=== PATIENT | female | born 1985 | race Caucasian/White ===

== ENCOUNTER 2022-10-26 11:23 | Emergency (ER) | payer SELFPAY ==
--- OUTSIDE RECORDS SUMMARY | 2022-10-26 11:26 | XMS REPORT | Continuity of Care Document ---
:1985 Author Organization [facility] t Address [address] [facility] [address] [place] [id number] Care Team Providers Name Role Phone Pcp, Patient Does Not Have A Primary Care Physician [id number] Kapil Ruby Attending Clinician Anival Louie Attending Clinician ANVIAL COTTRELL Attending Clinician Unavailable MARY GAINES Attending Clinician Unavailable MAXIME LLOYD Attending Clinician Unavailable MARY GAINES Admitting Clinician Unavailable Payers Payer Name Policy Type Policy Number Effective Date Expiration Date [facility] [id number] 2015 CHOICE [place] STAR 00:00:00 Problems Condition Condition Condition Status Onset Resolution Last Treating Co mments Source Name Details Category Date Date Treatment Clinician Date Well woman Well woman Disease Active Overview : Univers exam exam 3-17 Formattin ity of 00:00: g of this [place] 00 note Medical might be Branch different from the original. Last exam and pap 04/2016. Pap negative 11/2015. Report here Encounter Encounter Disease Active Overview: Univers for for 3-17 Formattin ity of initial initial 00:00: g of this [place] prescripti prescripti 00 note Me dical on of on of might be Branch injectable injectable different contracept contracept from the tracey tracey original. Depo started 06/2016 Metrorrhag Metrorrhag Disease Active Overview : Univers ia ia 06-24 Formattin ity of 00:00: g of this [place] 00 note Medical might be Branch different from the original. At 5 wk postpartu m. Stopped w/ Ibuprofen Allergies, Adverse Reactions, Alerts Allergy Allergy Status Severity Reaction(s) Onset Inactive Treating Comm ents Source Name Type Date Date Clinician No Known DA Active U [facility] Allergie 05-19 Clear s 00:00: [place] 00 [facility] NO KNOWN Drug Active Univers ALLERGIE Class ity of S [facility] [place] [facility] Social History Social Habit Start Date Stop Date Quantity Comments Source History of tobacco Cigarette Smoker University of use [facility] [place] [facility] Exposure to 2022-05-26 2022-06-05 Not sure [facility] SARS-CoV-2 (event) 00:00:00 13:27:00 [facility] [place] [facility] Alcohol intake 2022-06-05 2022-06-05 Current University 00:00:00 00:00:00 non-drinker of [facility] alcohol Branch (finding) Cigarettes smoked 2016-06-24 2016-06-24 Univers ity of current (pack per 00:00:00 00:00:00 ) - Reported Branch Tobacco use and 2016-06-24 2016-06-24 Smokeless Universit y of exposure 00:00:00 00:00:00 tobacco non-user [facility] Sex Assigned At [birth year] Universit y of 00:00:00 00:00:00 [facility] [place] [facility] Smoking Status Start Date Stop Date Source Smokes tobacco daily 2016-06-24 00:00:00 Univers ity of [facility] [place] [facility] Medications Ordered Filled Start Stop Current Ordering Indication Dosage Frequency Signature Comments Components Source Medication Medication Date Date Medication? Clinician (SIG) Name Name medroxyPROG Yes [id number] 150mg Univers ESTERone 3-22 ity of (DEPO-PROVE 19:00: [place] RA) 00 Medical injection Branch 150 mg VITAFOL Yes [id number] TK 1 C PO Univers ULTRA 29 mg 3-09 QD ity of iron- 1 00:00: [place] mg-200 mg 00 Medical Cap Branch Vital Signs Vital Name Observation Time Observation Value Comments Source Body weight 2022-06-05 19:30:00 34.337 kg [facility] BMI 2022-06-05 19:30:00 13.41 kg/m2 [facility] Systolic blood 2022-06-05 19:29:00 164 mm[Hg] Univer sity of pressure [facility] [place] [facility] Diastolic blood 2022-06-05 19:29:00 93 mm[Hg] Unive rsity of pressure [facility] [place] [facility] Heart rate 2022-06-05 19:29:00 103 /min [facility] Body temperature 2022-06-05 19:29:00 36.56 [facility]ela [facility] Respiratory rate 2022-06-05 19:29:00 18 /min [facility] Oxygen saturation in 2022-06-05 19:29:00 96 /min [facility] Arterial blood by [facility] Pulse oximetry [place] Procedures Procedure Date / Time Performed Performing Clinician [facility] e CONSENT/REFUSAL FOR 2022-06-05 19:26:34 Doctor Unassigned, No Un [facility] DIAGNOSIS AND Name [facility] TREATMENT Encounters Start End Encounter Admission Attending Care Care Encounter Source Date/Time Date/Time Type Type Clinicians Facility Department ID 2022-06-13 2022-06-13 Outpatient [facility] [id number] [address] [place] [address] 13:15:00 13:15:00 Health 2022-06-05 2022-06-05 Emergency Kapil Wade B TRAUMA [id number] [facility] 13:31:00 14:19:00 Anival Cottrell [place] [id number] [id number] [id number] [facility] 014 Branch 2022-06-05 2022-06-05 Emergency X AKHIL ORANA PAULA ERT [id number] [facility] 13:31:00 14:19:00 ANIVAL verdey of [facility] [place] [facility] 2021-09-01 2021-09-02 Inpatient E [facility] [id number] 03:35:00 20:36:00 [facility] 2021-05-21 2021-05-21 Emergency E [facility] [id number] 13:48:00 14:33:00 MAXIME trejo [facility] 2017-11-13 2017-11-16 Outpatient [facility] [id number] [place] 00:00:00 00:00:00 [facility] 2017-09-16 2017-09-17 Outpatient [facility] [id number] [place] 00:00:00 00:00:00 [facility] 2017-01-23 2017-01-24 Outpatient [facility] [id number] 77 [place] 00:00:00 00:00:00 [facility] Results Test Description Test Time Test Comments Results Result Comments Source RPR Ser-Titr 2022-06-15 12:56:39 Test Item Value Reference Range Interpretation Comme nts T pallidum Ab Ser Ql Aggl (test code = 25414-6) NEGATIVE Negati ve, Equivocal Reagin+T pallidum IgG+IgM SerPl-Imp (test code = NEGATIVE Negat tracey 13215-1) HHSHIV 1+2 Ab+HIV1 p24 Ag SerPl Ql [id number] 11:43:06 Test Item Value Reference Range Interpretation Comments HIV 1+2 Ab+HIV1 p24 Ag SerPl Ql IA NEGATIVE Negative (test code = 30204-2) [facility]- XR CHEST 2 [id number] 16:34:00 FAX: Benedict Smith DO [phone] [place]: St: REG Name: BIENVENIDO ELIZONDO GORDON [facility] : 1985 Age/S: 33/F [address] [place] [address] Unit #: [id number] Loc: VitaliyERS2 [place] [address] Phys: Benedict Ferro DO Acct: [id number] Dis Date: Status: REG ER PHONE #: [phone] Exam Date: 07/28/2018 1503 FAX #: [phone] Reason: cough EXAMS: CPT CODE: [id number] XR CHEST 2 V 23920 Clinical Indication: coughComparison: December 29, 2007 FINDINGS: The frontal and lateral chest radiographs show normal lung volumes. No interstitial or airspace opacities are seen. No pleural effusions are present. No pneumothorax is seen. The heart is normal in size. The trachea is midline. There are no clinically significant osseous abnormalities noted. IMPRESSION: No chest radiographic evidence of acute cardiopulmonary disease. SL: [id number] at 1634 Reported and signed by: Rosalino Castano M.D. CC: Benedict Ferro DO Technologist: ONEL Maguire) Trnscrd Date/Time/By: 07/28/2018 (5060) : By: DemarLNV Orig Print D/T: S: 07/28/2018 (4472) PAGE 1 Signed ReportBASIC METABOLIC PANEL 2018-07-28 15:15:00 Test Item Value Reference Range Interpretation Comments SODIUM (test code = NA) 137 mEq/L 134-147 N POTASSIUM (test code = 4.3 mEq/L 3.4-5.0 N K) CHLORIDE (test code = 106 mEq/L 100-108 N CL) CARBON DIOXIDE (test 26 mEq/L 21-33 N code = CO2) ANION GAP (test code = 9 0-20 N GAP) GLUCOSE (test code = 107 mg/dL 70-110 N GLU) BLOOD UREA NITROGEN 15 mg/dL 7-18 N (test code = BUN) GLOMERULAR FILTRATION 97.0 105-110 L Units of measure = RATE (test code = GFR) ml/mi n/1.73 m2 CREATININE (test code = 0.7 mg/dL 0.6-1.3 N CREAT) CALCIUM (test code = 8.5 mg/dL 8.0-10.5 N CA) HEPATIC FUNCTION [id number] 15:15:00 Test Item Value Reference Range Interpretation Comments TOTAL PROTEIN (test code = PROT) 7.6 g/dL 6.4-8.2 N ALBUMIN (test code = ALB) 4.10 g/dL 3.4-5.0 N BILIRUBIN TOTAL (test code = BILT) 0.30 mg/dL 0.0-1.0 N BILIRUBIN DIRECT (test code = 0.10 MG/DL 0.0-0.30 N BILD) BILIRUBIN INDIRECT (test code = 0.20 MG/DL BILIND) SGOT/AST (test code = AST) 16 IUnit/L 15-37 N SGPT/ALT (test code = ALT) 21 IUnit/L 15-65 N ALKALINE PHOSPHATASE TOTAL (test 48 IUnit/L 20-125 N code = ALKP) BASIC METABOLIC [id number] 15:11:00 Test Item Value Reference Range Interpretation Comments SODIUM (test code = NA) 137 mEq/L 134-147 N POTASSIUM (test code = 4.3 mEq/L 3.4-5.0 N K) CHLORIDE (test code = 106 mEq/L 100-108 N CL) CARBON DIOXIDE (test 26 mEq/L 21-33 N code = CO2) ANION GAP (test code = 9 0-20 N GAP) GLUCOSE (test code = 107 mg/dL 70-110 N GLU) BLOOD UREA NITROGEN 15 mg/dL 7-18 N (test code = BUN) GLOMERULAR FILTRATION 97.0 105-110 L Units of measure = RATE (test code = GFR) ml/mi n/1.73 m2 CREATININE (test code = 0.7 mg/dL 0.6-1.3 N CREAT) CALCIUM (test code = 8.5 mg/dL 8.0-10.5 N CA) HEPATIC FUNCTION [id number] 15:11:00 Test Item Value Reference Range Interpretation Comments TOTAL PROTEIN (test code = PROT) g/dL 6.4-8.2 ALBUMIN (test code = ALB) 4.10 g/dL 3.4-5.0 N BILIRUBIN TOTAL (test code = BILT) mg/dL 0.0-1.0 BILIRUBIN DIRECT (test code = 0.10 MG/DL 0.0-0.30 N BILD) SGOT/AST (test code = AST) 16 IUnit/L 15-37 N SGPT/ALT (test code = ALT) 21 IUnit/L 15-65 N ALKALINE PHOSPHATASE TOTAL (test IUnit/L 20-125 code = ALKP) Notes Date/Time Note Provider Source 2018-07-28 14:17:00-00:00 [facility] EMERGENCY PROVIDER REPORT REPORT#:[id number] REPORT STATUS: Signed DATE:07/28/18 TIME: 1416 PATIENT: BIENVENIDO ELIZONDO RAI UNIT #: [id number] ROOM/BED: AGE: 33 SEX: F PCP PHYS: No Primary or Family Ph ysician SERVICE AUTHOR: Benedict Ferro DO * ALL edits or amendments must be made on the Noteleaf/computer document * HPI-General Illness Free Text HPI Notes Free Text HPI Notes 33 yo F with h/o adjustment d/o presents with N/V. Pt reports she feels she is going through withdrawal, since has has experien jelly it before. She states she last used meth heroine 4 days ago. Denie s IV use. She admits to assoc diarrhea body aches. Denies fever or other recent infect ious sxs. Pt denies EtOH use. General Confirmed Patient Yes Initial Greet Date/Time 07/28/18 1408 Presentation Chief Complaint Vomiting Hx Obtained From Patient Onset Occurred Days ago Portions of this section were scribed by Shivani Cueto on 07/28/18 at 1653 Portions of this section were scribed by Nathalia Nuenz on 07/28/18 at 1453 Review of Systems ROS Statements All systems rev neg except as marked. Review of Systems Constitutional Denies: Chills, Fever. GI Reports: Diarrhea, Nausea, Vomiting. Musculoskeletal Reports: Myalgia. Psychiatric Denies: Hallucinations, auditory, Hallucinations , visual, Homicidal ideation, Suicidal ideation. Portions of this section were scribed by Nathalia Nunez on 07/28/18 at 1417 Past Medical History - Adult Stated Complaint N/V DETOXING FROM HEROIN Allergies Coded Allergies: No Known Allergies (05/19/16) Home Medications Discontinued Scripts DOCUSATE SODIUM (COLACE) 100 MG PO BID PRN PRN C onstipation DOCUSATE SODIUM (COLACE) 100 MG PO BID PRN PRN Constipation #30 CAP Prov: 05/19/16 DC: 07/28/18 1425 Changed since prior admit HYDROcodone/APAP (NORCO 5/325) 1-2 TABS PO Q6H P RN PRN PAIN HYDROcodone/APAP (NORCO 5/325) 1-2 TABS PO Q6H PRN PRN PAIN #30 TAB Prov: 05/20/16 DC: 07/28/18 1425 DC prior to admit IBUPROFEN (MOTRIN) 600 MG PO Q6H PRN PRN PAIN IBUPROFEN (MOTRIN) 600 MG PO Q6H PRN PRN PAIN # 30 TAB Prov: 05/20/16 DC: 07/28/18 1425 DC prior to admit FERROUS SULFATE (FEOSOL) 325 MG PO DAILY FERROUS SULFATE (FEOSOL) 325 MG PO DAILY #30 TA B Prov: 05/20/16 DC: 07/28/18 1425 DC prior to admit Reported Medications ESCITALOPRAM (LEXAPRO) 10 MG PO DAILY hydrOXYzine HCL (ATARAX) 50 MG PO TID Past Medical History: Reports: Seizure disorder. Additional Medical History ovarian cyst, adjustment d/o, ectopic Past Surgical History: Reports: . Alcohol Use Denies EtOH use Drug Use Meth/amphetamines, Opiates (heroine) Smoking status for patients 13 years old or olde r: Current every day smoker Portions of this section were scribed by Nathalia Nunez on 07/28/18 at 1453 Physical Exam Vital Signs Vital Signs First Documented: Result Date Time Pulse Ox 99 07/28 1413 B/P 139/88 07/28 1413 B/P Mean 105 07/28 1413 O2 Delivery Room air 07/28 1413 Temp 36.9 07/28 1413 Pulse 86 07/28 1413 Resp 18 07/28 1413 Last Documented: Result Date Time Pulse Ox 99 07/28 1820 B/P 110/62 07/28 1820 B/P Mean 78 07/28 1820 O2 Delivery Room air 07/28 182 Temp 36.7 07/28 182 Pulse 74 07/28 1820 Resp 15 07/28 182 Review of Vital Signs Reviewed Physical Exam General/Const General/Const Awake, Alert, Cooperative Text/Dict Notes appears uncomfortable, disheveled MS Head Head Atraumatic, Normocephalic Eyes Eyes Conjunctiva NL Text/Dict Notes pupils midline Ears/Nose/Throat Ears/Nose/Throat Airway patent Text/Dict Notes dry mucous membranes MS Neck Neck Supple Resp/Chest Respiratory/Chest Breath sounds NL, No respira tory distress, No rales, No rhonchi, No wheezing Cardiovascular Cardiovascular Heart rate NL, Regular rhythm, H eart sounds NL Abdomen/GI Abdomen/GI Soft, No guarding, No rebound, No di stention Text/Dict Notes mild generalized tenderness MS Lower Extrem Lower Ext/Pelvis/MS No swelling, Non-tender Skin Skin Warm, Dry, Intact Neurologic Neurologic Oriented X3, Speech NL Text/Dict Notes slightly tremulous Psychiatric Psychiatric Affect NL, Mood NL, Not suicidal, N ot homicidal Portions of this section were scribed by Shivani Cueto on 07/28/18 at 1651 Portions of this section were scribed by Nathalia Nunez on 07/28/18 at 1421 Interpretation Diagnostics Lab Results Interpretation Results Laboratory Tests 07/28/18 1420: [Embedded Image Not Available] Laboratory Tests: 07/28 1420 Chemistry Sodium (134 - 147 mEq/L) 137 Potassium (3.4 - 5.0 mEq/L) 4.3 Chloride (100 - 108 mEq/L) 106 Carbon Dioxide (21 - 33 mEq/L) 26 Anion Gap (0 - 20) 9 BUN (7 - 18 mg/dL) 15 Creatinine (0.6 - 1.3 mg/dL) 0.7 Glomerular Filtr Rate (105 - 110) 97.0 L Glucose (70 - 110 mg/dL) 107 Calcium (8.0 - 10.5 mg/dL) 8.5 Total Bilirubin (0.0 - 1.0 mg/dL) 0.30 Direct Bilirubin (0.0 - 0.30 MG/DL) 0.10 Indirect Bilirubin (MG/DL) 0.20 AST (15 - 37 IUnit/L) 16 ALT (15 - 65 IUnit/L) 21 Total Alk Phosphatase (20 - 125 IUnit/L) 48 Total Protein (6.4 - 8.2 g/dL) 7.6 Albumin (3.4 - 5.0 g/dL) 4.10 Recent Impressions: RADIOLOGY - XR CHEST 2 V 07/28 1503 Report Impression - Status: SIGNED Entered: 07/28/2018 1637 IMPRESSION: No chest radiographic evidence of acute cardiopu lmonary disease. SL: [id number] Impression By: Caleb Castano M.D. Point of Care Testing Pulse Oximetry Pulse Ox % 99 On: Room air Interpretation Interpreted by me, Pulse oximetr y normal Time 1413 ECG #1 Interpretation Text/Dict Note NSR, incomplete RBBB, no STEMI, [place] inter manohar 132 ms, QRS duration 94 ms, QT/QTc 402/454 ms Date 07/28/18 Time 1449 Interpreted by ED physician Rate 77 Radiography X-Ray Chest Text/Dict Note RADIOLOGY - XR CHEST 2 V 07/28 1503 Report Impression - Status: SIGNED Entered: 07/28/2018 1637 IMPRESSION: No chest radiographic evidence of acute cardiopu lmonary disease. SL: [id number] Impression By: Caleb Castano M.D. Interpretation/Wet Read by Interpret - Radiolog ist Reviewed by ED physician Portions of this section were scribed by Shivani Cueto on 07/28/18 at 1653 Portions of this section were scribed by Nathalia Nunez on 07/28/18 at 1453 Re-Evaluation MDM Free Text MDM Notes Free Text MDM Notes 33F with sxs of withdrawal, endorses recent use of methamphetamine as well as opiates. BMP normal. Treated symptomatically, stable for discharge. Re-Evaluation/Progress #1 Text/Dict Note Discussed lab results/imaging findigns, dx, and rx w/ pt. Provided reasons to return to the ED. Pt will f/u w/ PCP as needed. Pt agrees w/ plan to DC home. Time of Re-Eval 1646 ED Course Medication(s) Ordered Medication(s) Ordered: Antihistamine Drugs Sig/Nan Start time Last Medication Dose Route Stop Time Status Admin Promethazine HCl 25 MG X1ED STA 07/28 1423 DC 0 07/28 IM 07/28 1424 1440 Central Nervous System Agents Sig/Nan Start time Last Medication Dose Route Stop Time Status Admin Lorazepam 1 MG X1ED STA 07/28 1423 DC 07/28 IV 07/28 1424 1441 Electrolytic, Caloric, And Efrem Sig/Nan Start time Last Medication Dose Route Stop Time Status Admin Sodium Chloride 0 ASDIR PRN 07/28 1430 DCD IV 07/29 1318 Sodium Chloride 0 ASDIR PRN 07/28 1430 DCD IV 08/27 1429 Sodium Chloride 1,000 ML X1ED STA 07/28 1419 DC 07/28 IV 07/28 1518 1440 Portions of this section were scribed by Shivani Cueto on 07/28/18 at 1651 Portions of this section were scribed by Nathalia Nunez on 07/28/18 at 1453 Patient Discharge Departure Vital Signs/Condition Vital Signs First Documented: Result Date Time Pulse Ox 99 07/28 1413 B/P 139/88 07/28 1413 B/P Mean 105 07/28 1413 O2 Delivery Room air 07/28 1413 Temp 36.9 07/28 1413 Pulse 86 07/28 1413 Resp 18 07/28 1413 Last Documented: Result Date Time Pulse Ox 99 07/28 1820 B/P 110/62 07/28 1820 B/P Mean 78 07/28 1820 O2 Delivery Room air 07/28 182 Temp 36.7 07/28 182 Pulse 74 07/28 1820 Resp 15 07/28 1820 All vital signs available at the time of this en try have been reviewed. Condition Improved Clinical Impression Clinical Impression Primary Impression: Opiate withdrawal Disposition Decision Discharge )( Discharged to Home Yes )( Time 1650 )( Date 07/28/18 Discharge/Care Plan Counseled Regarding Diagnosi s, Lab results, Imaging studies, Need for follow-up, When to return to ED Supervising Physician Note Scribe Statement La Nunez, 07/28/18 141, scribing for and in the presence of Dr. Ferro. Signed By: La Nunez, 07/28/18 1419 Divya. Rom, 07/28/18 1419, scribing for and in the presence of Dr. Ferro. Signed By: Shivani Cueto, 07/28/18 1606 Provider Scribed Statement I personally performed the s ervices described in this documentation and reviewed the documentation that was dictated to the scrib e(s) in my presence, and it accurately records my words and actions. Veronika Ferro, 07/28/18 Portions of this section were scribed by Shivani Cueto on 07/28/18 at 1651 Portions of this section were scribed by Nathalia Nunez on 07/28/18 at 1419 Electronically Signed by Benedict Ferro DO on at 1843 RPT #:[id number] END OF REPORT
--- NOTE | 2022-10-26 12:34 | ER ---
Nurse's Notes [facility] Name: Danilo Kaplan Age: 37 yrs Sex: Female : 1985 Arrival Date: 10/26/2022 Time: 11:23 Bed IW1 Private MD: Diagnosis: Heroin addiction with mild withdrawal Presentation: 10/26 11:45 Chief complaint: Patient states: Pt at [facility] rehab, is there for heroin use, ph last used 2 days ago, admits to using heroin, fentanyl, and meth, denies ETOH, pt denies pain, reports nausea, denies vomiting, accompanied by [facility] staff member who states that she was given Suboxone this morning and "then she couldn't function". Coronavirus screen: Vaccine status: Patient reports being unvaccinated. Ebola Screen: No symptoms or risks identified at this time. Initial Sepsis Screen: Does the patient meet any 2 criteria? No. Patient's initial sepsis screen is negative. Does the patient have a suspected source of infection? No. Patient's initial sepsis screen is negative. Risk Assessment: Do you want to hurt yourself or someone else? Patient reports no desire to harm self or others. Onset of symptoms was October 26, 2022. 11:45 Method Of Arrival: Ambulatory ph 11:45 Acuity: ELIAS 3 ph Historical: - Allergies: 11:48 No Known Allergies; ph - PSHx: 11:48 ectopic ; ph - Immunization history:: Adult Immunizations unknown. - Social history:: Smoking status: Patient reports the use of cigarette tobacco products, smokes one-half pack cigarettes per day, Reported history of juuling and/or vaping. Patient uses street drugs, heroin, Methamphetamine (Meth) Fentanyl. - Family history:: not pertinent. - Hospitalizations: : No recent hospitalization is reported. Vital Signs: 11:45 BP 133 / 90; Pulse 74; Resp 18; Temp 97.1(TE); Pulse Ox 100% on R/A; Weight 118.39 kg; ph ED Course: 11:25 Patient arrived in ED. mr 11:25 Luis Miguel Loza MD is Attending Physician. rn 11:48 Triage completed. ph 11:49 Arm band placed on Patient placed in waiting room, Patient notified of wait time. ph 12:32 [facility] Administered Medications: No medications were administered Outcome: 12:33 Patient left the ED. ph 13:17 Discharge ordered by . rn 13:36 Patient left the ED. ll1 Signatures: Claudine Azevedo Roman, MD MD rn Hall, Patricia, RN RN ph Lewis, Lynsay, RN RN [facility]
--- NOTE | 2022-10-26 12:34 | EDPHYS ---
Physician Documentation [facility] Name: Danilo Kaplan Age: 37 yrs Sex: Female : 1985 Arrival Date: 10/26/2022 Time: 11:23 Bed IW1 Private MD: ED Physician Luis Miguel Loza HPI: 10/26 11:48 This 37 yrs old Female presents to ER via Unassigned with complaints of Withdrawals. rn 11:48 Pt reports coming off of heroin and fentanyl addiction, is currently at [facility], rn reported to them that she was having whole body pain, nausea, and directed to come here. Given 1 dose of suboxone there. NO chest pain/sob/abd pain. . Onset: The symptoms/episode began/occurred yesterday. Severity of symptoms: At their worst the symptoms were moderate in the emergency department the symptoms are unchanged. It is unknown whether or not the patient has had similar symptoms in the past. The patient has not recently seen a physician. 11:48 Last heroin use was 2 days ago, last fentanyl was yesterday. . rn Historical: - Allergies: 11:48 No Known Allergies; ph - PSHx: 11:48 ectopic ; ph - Immunization history:: Adult Immunizations unknown. - Social history:: Smoking status: Patient reports the use of cigarette tobacco products, smokes one-half pack cigarettes per day, Reported history of juuling and/or vaping. Patient uses street drugs, heroin, Methamphetamine (Meth) Fentanyl. - Family history:: not pertinent. - Hospitalizations: : No recent hospitalization is reported. ROS: 11:48 Constitutional: Negative for fever, chills, and weight loss, Eyes: Negative for injury, rn pain, redness, and discharge, Neck: Negative for injury, pain, and swelling, Cardiovascular: Negative for chest pain, palpitations, and edema, Respiratory: Negative for shortness of breath, cough, wheezing, and pleuritic chest pain, Abdomen/GI: + nausea MS/Extremity: Negative for injury and deformity, Skin: Negative for injury, rash, and discoloration, Neuro: Negative for numbness, tingling, and seizure. Exam: 11:48 Constitutional: Disheveled, awake, alert, ambulatory without assistance. Head/Face: rn Normocephalic, atraumatic. ENT: dry MM Cardiovascular: Regular rate and rhythm Respiratory: No increased work of breathing, no retractions or nasal flaring. Abdomen/GI: Soft, non-tender Skin: Excoriations throughout body, no signs of cellulitis MS/ Extremity: Pulses equal, no cyanosis. Neuro: Awake and alert, GCS 15, oriented to person, place, time, and situation. Motor strength 5/5 in all extremities. Sensory grossly intact. Cerebellar exam normal. Normal gait. Vital Signs: 11:45 BP 133 / 90; Pulse 74; Resp 18; Temp 97.1(TE); Pulse Ox 100% on R/A; Weight 118.39 kg; ph MDM: 11:25 Patient medically screened. rn 13:17 Differential Diagnosis withdrawal, adverse effects of drug use. Data reviewed: vital rn signs, nurses notes. ED course: Pt went back to waiting room, then decided she did not want further care, stable vitals, mild withdrawal, currently enrolled in [facility] and has suboxone, will dc home per her wishes. . 10/26 11:36 Order name: IV Start rn Administered Medications: No medications were administered Disposition Summary: 10/26/22 13:17 Discharge Ordered Location: Home rn Problem: new rn Symptoms: have improved rn Condition: Stable rn Diagnosis - Heroin addiction with mild withdrawal rn Followup: rn - With: Private Physician - When: As needed - Reason: Recheck today's complaints, Re-evaluation by your physician Forms: - Medication Reconciliation Form rn - Thank You Letter rn - Antibiotic wellness rn - Prescription Opioid Use rn - Patient Portal Instructions rn Signatures: Dispatcher [employer] EDLuis Miguel Cronin MD MD rn Hall, Patricia, RN RN Corrections: (The following items were deleted from the chart) 13:16 12:33 after being seen by provider ph rn 13:16 12:33 wait time ph rn
[2022-10-26 12:44] VITALS: BP 133/90; TEMP 97.1; O2SAT 100
== END 2022-10-26 13:36 | disposition home or self-care (01) ==
LOC: ER 11:23
DX: F11.23 Opioid dependence with withdrawal (principal)
CPT/HCPCS: 99281